=== PATIENT | female | born 1955 | race Caucasian/White ===

== ENCOUNTER → 2024-09-01 | Outpatient (CLI) | payer MEDICARE, SELFPAY ==
--- NOTE | 2024-09-01 09:40 | XR_ITS ---
Examination: Hand, right 3 views Technique: Hand AP, oblique, lateral 3 views Date and time of exam: September 01, 2024 1002 hours INDICATIONS: Right hand pain beginning 2 months ago FINDINGS: Moderate osteopenia Mild diffuse narrowing joints of the wrist and hand No erosive arthritis No cortical bone destruction No opaque foreign bodies IMPRESSION: Moderate osteopenia No erosive or other significant arthritic change
== END | disposition home or self-care (01) ==
LOC: CDIM 09:28
PROVIDERS: PCP Physician Assistant Medical; Referring Provider Orthopaedic Surgery; Visit Provider Orthopaedic Surgery
DX: M85.841 Other specified disorders of bone density and structure, right hand (principal)
CPT/HCPCS: 73130

== ENCOUNTER → 2024-09-05 | Outpatient (CLI) | payer MEDICARE, SELFPAY ==
[2024-09-05 14:38] LABS: Magnesium 2.2 mg/dL (1.6-2.6); Thyroid Stimulating Hormone 0.71 uIU/mL (0.55-4.78)
[2024-09-05 14:58] LABS: Iron 63 mcg/dL (50-170); T4 (Thyroxine) 8.1 mcg/dL (4.5-10.9)
[2024-09-05 15:10] LABS: Folate > 24.00 ng/mL (>5.38); Vitamin B12 1315 pg/mL (211-911)
[2024-09-05 15:16] LABS: Glucose Estimated Average 114 mg/dL (80-131); Hemoglobin A1C 5.6 % Hgb (4.8-6.0)
[2024-09-09 06:46] LABS: T3,Total* 90 ng/dL (76-181)
== END | disposition home or self-care (01) ==
LOC: COPL 12:41
PROVIDERS: PCP Physician Assistant Medical; Referring Provider Orthopaedic Surgery; Visit Provider Orthopaedic Surgery
DX: G57.93 Unspecified mononeuropathy of bilateral lower limbs (principal)
CPT/HCPCS: 36415; 82607; 82746; 83036; 83540; 83735; 84436; 84443; 84480

== ENCOUNTER → 2025-05-26 | Outpatient (CLI) | payer MEDICARE, SELFPAY ==
--- NOTE | 2025-05-26 10:00 | XR_ITS ---
Examination: CT maxillofacial, without intravenous contrast. 2-D sagittal reconstructions. 3-D reconstructions. Date and time of exam: May 26, 2025, 0957 hours INDICATIONS: Sinus pressure and pain sinus infections months CTDI: vol (mGy): 6.2 DLP: (mGycm): 84.2 Technique: Multiple axial images of maxillofacial region, 3.0 mm slice thickness. 2-D sagittal and coronal reconstructions. 3-D reconstructions. Low dose protocols were performed. One or more of the following dose reduction techniques were used; automated exposure control, adjustment of the mA and/or KV according to patient size, use of iterative reconstruction technique. Findings: Trace mucosal thickening in the frontal air cells Mild mucosal thickening ethmoid air cells, no occlusion ostiomeatal complexes Fluid level left maxillary antrum Deviation nasal septum to the right 4 mm Negative for otitis media IMPRESSION: Acute left maxillary sinusitis
== END | disposition home or self-care (01) ==
PROVIDERS: Referring Provider Physician Assistant Medical; Visit Provider Physician Assistant Medical
DX: J01.00 Acute maxillary sinusitis, unspecified (principal)
CPT/HCPCS: 70486